=== PATIENT | female | born 1965 | race Caucasian/White ===

== ENCOUNTER → 2019-10-05 | Outpatient (CLI) | payer OTHER ==
[2014-12-01 07:41] VITALS: BP 102/81
[~2019-10-05] MED LIST: ASPI-482 PO; ATOM40CA PO; BUDE10.2 IH; CARI4.5C PO; CRESTOR5 MG PO; DESV50TA PO; DICL50TA2 PO; DIVA500T2 PO; GABA300C18 PO; ISOS30TA4 PO; LORA2TAB PO; METF10007 PO; MIDO5TAB4 PO; OMEP40CA45 PO; PANT40TA77 PO; POTA99TA PO; PRAV40TA2 PO; ROPI0.5T PO; TIOT18CA IH; TOPI100T42 PO; TRAZ-118 PO; VENL150C6 PO; VENL75TA PO
[2019-10-05 09:43] LABS: ALBUMIN 3.5 g/dL (3.4-5.0); CALCIUM 9.2 mg/dL (8.5-10.1); CREATININE 0.8 mg/dL (0.6-1.0); GFR 75.3; TOTAL BILIRUBIN 0.3 mg/dL (0.2-1.0)
[2019-10-05 09:44] LABS: POTASSIUM 4.2 mmol/L (3.5-5.1)
[2019-10-05 09:45] LABS: CHOLESTEROL/HDL RATIO 2.2
== END | disposition home or self-care (01) ==
LOC: LAB 08:44
PROVIDERS: ATTEND Nurse Practitioner
DX: E78.5 Hyperlipidemia, unspecified (principal)
CPT/HCPCS: 36415; 80053; 80061

== ENCOUNTER → 2019-10-05 | Outpatient (CLI) | payer OTHER ==
[2014-12-01 07:41] VITALS: BP 102/81
[2019-10-05 09:35] LABS: BASO % 1 % (0-3); EOS # 0.2 x10^3/uL (0.0-0.7); EOS % 2 % (0-3); HEMATOCRIT 40.8 % (36.0-47.0); HEMOGLOBIN 14.3 g/dL (12.0-15.5); LYMPH # 3.1 x10^3/uL (1.0-4.8); LYMPH % 41 % (24-48); MEAN CORPUSCULAR HEMOGLOBIN 34 pg (25-35); MEAN CORPUSCULAR HGB CONC 35 g/dL (31-37); MEAN CORPUSCULAR VOLUME 96 fL (79-100); MONO # 0.5 x10^3/uL (0.0-1.1); MONO % 7 % (0-9); NEUT # 3.8 x10^3/uL (1.8-7.7); NEUT % 50 % (31-73); PLATELET COUNT 193 x10^3/uL (140-400); RED BLOOD COUNT 4.24 x10^6/uL (3.50-5.40); RED CELL DISTRIBUTION WIDTH 13.3 % (11.5-14.5); WHITE BLOOD COUNT 7.7 x10^3/uL (4.0-11.0)
[2019-10-05 09:58] LABS: PROTHROMBIN TIME PATIENT 13.1 SEC (11.7-14.0)
--- NOTE | 2019-10-06 07:49 | RAD ---
CHEST PA LATERAL History: Tobacco use. Presurgical evaluation. Right knee surgery to be performed. Comparison: None. Findings: Frontal and lateral views of the chest were obtained. The cardiomediastinal silhouette is normal. Pulmonary vasculature is normal. The lungs are clear. No pleural effusion or pneumothorax is seen. There is no acute bone abnormality. Upper abdominal surgical clips are present. IMPRESSION: No acute cardiopulmonary process. Electronically signed by: Juan Rodrigez MD (10/06/2019 7:46 AM) [facility]
== END | disposition home or self-care (01) ==
LOC: SURGPAT 13:13
PROVIDERS: ATTEND Orthopaedic Surgery
DX: Z01.818 Encounter for other preprocedural examination (principal); M17.11 Unilateral primary osteoarthritis, right knee; Z72.0 Tobacco use
CPT/HCPCS: 36415; 71046; 82040; 82306; 83036; 85025; 85610; 85651; 85730; 87641

== ENCOUNTER 2019-10-27 05:40 | Inpatient (IN) | payer OTHER ==
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
[~2019-10-27] VITALS: Ht 165.1 cm; Wt 93.9 kg
[2019-10-27] VITALS (10 sets, daily range): BP systolic 97–119; BP diastolic 54–71
[2019-10-27] MEDS ORDERED: CELECOXIB 100 MG CAPSULE. PO ONE (06:00)
[2019-10-27] MEDS ORDERED: MORPHINE SULFATE 5 MG, KETOROLAC 30MG VIAL 30 MG, ROPIVacaine 0.5% PF 60 ML, EPINEPHrin... INT ART ONE ×5 (06:00)
[2019-10-27] MEDS ORDERED: TRANEXAMIC ACID 1,000 MG in IV NS 50ML -- 1ST BAG INJ ONE (06:00)
[2019-10-27] MEDS ORDERED: ACETAMINOPHEN 500 MG TABLET PO PRN (06:00)
[2019-10-27] MEDS ORDERED: VANCOMYCIN 1 GM VIAL. ONE ×2 (06:55→06:56)
[2019-10-27] MEDS ORDERED: TOBRAMYCIN POWDER 1.2 GM VIAL. ONE (06:56)
[2019-10-27] MEDS ORDERED: IV RINGERS,LACTATED 1000ML 1,000 ML IV SCH (07:00)
[2019-10-27] MEDS ORDERED: fentaNYL PF VIAL 100 MCG/2 ML VIAL IV PRN ×3 (07:00→10:15)
[2019-10-27] MEDS ORDERED: ONDANSETRON PF 4 MG/2 ML VIAL. IV PRN (07:00)
[2019-10-27] MEDS ORDERED: HYDROmorphone 2 MG/ML VIAL IV PRN (07:00)
[2019-10-27] MEDS ORDERED: LIDOCAINE 1% PF 2 ML VIAL. ID PRN (07:00)
[2019-10-27] MEDS ORDERED: PROCHLORPERAZINE 10 MG/2 ML VIAL. IV PRN (07:00)
[2019-10-27] MEDS ORDERED: LIDOCAINE 2% PF 5 ML VIAL. ONE (07:09)
[2019-10-27] MEDS ORDERED: DEXAMETHASONE SOD PHOS 4 MG/ML VIAL ONE (07:09)
[2019-10-27] MEDS ORDERED: ONDANSETRON PF 4 MG/2 ML VIAL. ONE (07:09)
[2019-10-27] MEDS ORDERED: FAMOTIDINE 20 MG/2 ML VIAL ONE (07:09)
[2019-10-27] MEDS ORDERED: PROPOFOL 20 ML IV ONE (07:09)
[2019-10-27] MEDS ORDERED: MIDAZOLAM HCL/PF 2 MG/2 ML VIAL. ONE (07:10)
[2019-10-27] MEDS ORDERED: ROCURONIUM 50 MG/5 ML VIAL. ONE (07:10)
[2019-10-27] MEDS ORDERED: fentaNYL PF VIAL 100 MCG/2 ML VIAL ONE (07:10)
[2019-10-27] MEDS ORDERED: ePHEDrine PF IN SALINE 50 MG/10 ML SYRINGE. IV ONE (07:42)
[2019-10-27] MEDS ORDERED: TRANEXAMIC ACID 1,000 MG in IV NS 50ML -- 2ND BAG INJ ONE (08:00)
[2019-10-27] MEDS ORDERED: ceFAZolin 2GM PREMIX 2 GM/50 ML BAG IV ONE (09:00)
[2019-10-27] MEDS ORDERED: GLYCOPYRROLATE 1 MG/5 ML VIAL. ONE (09:11)
[2019-10-27] MEDS ORDERED: NEOSTIGMINE METHYLSULFATE 5 MG/5 ML SYRINGE. ONE (09:11)
[2019-10-27] MEDS ORDERED: SEVOFLURANE > 120 MINUTES. IH ONE (09:11)
--- NOTE | 2019-10-27 10:12 | PDOC4 ---
Operative Note Operative Note Date of Procedure: October 27, 2019 Pre-Op Diagnosis: Unilateral primary osteoarthritis, right knee. M17.11 Post-Op Diagnosis: same Procedure: right total knee arthroplasty with patella resurfacing, robotic assisted, CPT 03603 Surgeon: Zafar Corona MD Personal Banker: MARISELA Ortiz Anesthesia: General EBL: 100 mL Specimens Obtained: right knee bone and soft tissue Complications: none Drains: Hemovac plus pain catheter Tourniquet time: 80 Minutes Tourniquet Pressure: 300 mm Hg Indications for Procedure: Knee arthritis pain, affecting quality of life, unrelieved by nonoperative management Findings: Severe osteoarthritis with bone on bone contact medially with full thickness cartilage loss in the patellofemoral and lateral compartments Implants: Becerril & Nephew Journey II Total Knee System, Size 3 right bicruciate stabilized Journey II BCS Oxinium femoral component, size 3 right Journey nonporous tibial baseplate, size 3-4 13 mm right Journey II BCS XLPE articular insert, 32 mm oval Alexandra II resurfacing patellar component Procedure in Detail: The patient was identified in the preoperative holding area, and the correct right lower extremity was marked by me. The patient was taken to the operating room where the patient was anesthetized by the Department of Anesthesia. Preoperative antibiotics were given intravenously. Tranexamic acid 1 g was given intravenously for intraoperative hemostasis. A "time-out" procedure was perfo rmed. The patient was positioned supine on the operative table with a tourniquet on the upper right thigh. A right hip bump and heel bump were attached to the operating table for later intraoperative positioning. The right lower limb was thoroughly scrubbed, then sterile Chloraprep solution was applied, and the limb was draped in sterile fashion. The operating team wore exhaust ventilated hoods with Digium Personal Protection Toga Zippered Peel-Away protection system. An impervious stockinet and an adhesive drape were used such that the skin was entirely covered. The limb was exsanguinated with an Esmarch bandage, and the tourniquet was inflated. A midline skin incision was made with a scalpel using the patella and tibial tubercle as landmarks. Electrocautery was used for hemostasis. My virtual customer assistant used rake retractors and a laparotomy sponge. A medial parapatellar arthrotomy incision was used with extension into the distal quadriceps tendon. The patella was retracted laterally and Hohmann retractors were now used by my virtual customer assistant. Excess synovium, the menisci, and the cruciate ligaments were resected sharply. A periarticular multimodal ropivacaine anesthetic injection was used in the suprapatellar pouch and distal quadriceps muscle. The patella was everted and exposed. The patella thickness was measured with a caliper, and then cut freehand with a saw, using caliper measurements to assess the resection. The lateral retinaculum was partially released from the lateral patella using electrocautery. Rongeurs were used to make sure there were no remaining exposed patellar osteophytes medially or laterally. The patella was sized, and then drilled for an oval three-peg patella component. The tibial tracker array for the NAVIO system was applied to the tibial crest four finger breadths below the tibial tubercle, using percutaneous incisions and bicortical pins. The femoral tracker array was applied outside of the original incision using two separate stab incisions using bicortical pins. Checkpoint verification pins were applied to the femur and tibia. Using the point probe, the medial and lateral malleoli were localized and the locations were stored. The center of the tibia was noted at the anterior cruciate ligament insertion and stored. The center of the femur was marked at the intersection of Whitesidess line with the transepicondylar axis. The hip center calculation was performed with range of motion of the hip. The femur neutral position was identified, and simulated weightbearing was performed with axial compression on the foot. Range of motion without stress was performed and the data collected. Range of motion with valgus stress, and range of motion with varus stress data collection was also performed. Rotational references include the Whitesidess line, and the trans-epicondylar axis. The femoral articular surface was now mapped in 3 dimensions using the point probe and digital data collected. The tibial condyle articular surfaces and cortical edges were mapped in 3 dimensions using the point probe including the medial and lateral tibial plateau. Implant planning was now performed on-screen with manipulation of the implant sizes, cut thicknesses and gaps, component rotation, component flexion/extension and component varus/valgus until satisfactory ligament balance, alignment and stability of the knee was expected throughout the range of motion. My virtual customer assistant held Hohmann retractors and an [employer] retractor to protect the medial and lateral collateral ligaments, the patellar tendon, the skin and the other soft tissues. The point probe was used to confirm the location of the checkpoint verification pins. The distal femoral surface was now prepared using the Anspach jeff with footpedal, and the NAVIO handpiece for bone removal to the previously planned distal femoral resection. The crosshairs at the pin locations were marked by using a mallet and the point probe for definitive location. A 5-in-1 Journey II cutting guide was then applied and the position was checked with the virtual jocelyn wing from the NAVIO to ensure proper placement as the pins were applied. The posterior, anterior, and all chamfer cuts were made wi th the oscillating saw. Excess bone was removed with an osteotome and rongeurs. The tibial cutting guide was applied, positioned using the NAVIO virtual jocelyn wing, and secured to the upper tibia using three pins at the previously planned location. The virtual jocelyn wing was used to confirm the resection depth, slope and coronal alignment. The upper tibia was cut made with an oscillating saw. My virtual customer assistant held Hohmann retractors and a posterior cruciate ligament retractor to protect the medial and lateral collateral ligaments, the patellar tendon, the skin, the peroneal nerve and the other soft tissues. The upper tibia was sized with a trial baseplate. The posterior compartment was cleared of osteophytes and loose bodies. The periarticular anesthetic injection was used in the posterior compartment. The box cut for a posterior stabilized component was made. A preliminary reduction was performed with a trial femur, trial tibial baseplate and trial polyethylene. The NAVIO system was used to confirm range of motion, and postoperative stressed gap assessment. A medial release was required, using a 10 blade scalpel, and a Pinzon elevator to elevate the medial structures from the upper medial tibia. The stability was assessed using different thicknesses of tibial articular surface to find satisfactory stability and good range of motion. The rotation of the tibial component was marked on the upper tibia. Final trial reduction was now performed verifying patella tracking and tibiofemoral stability and alignment. The bone pins and tracker arrays were removed, and the checkpoint verification pins were removed. The tibia preparation was completed with a drill, saw, and fin punch at the previously noted rotation. The final implants were verified and opened. Outer gl oves were changed by the operating team. Betadine lavage was used. The bone cuts were irrigated with saline using the [employer] InterPulse device and then dried with suction and laparotomy sponges. Two packages of Becerril + Nephew Rally HV bone cement were mixed in powdered form with Vancomycin 1gm and Tobramycin 1.2 gm, and then vacuum-mixed with the monomer, and placed into a cement gun. The cut surfaces of the bone were thoroughly dried with suction and with laparotomy sponges for cement interdigitation. The final components were cemented into place. The knee was kept at full extension while the cement hardened, and excess cement was removed. A Betadine lavage was used throughout the surgical exposure, and allowed to sit in contact with the exposed joint surfaces for three minutes while the cement hardened. Tranexamic acid 1 g was redosed intravenously for additional intraoperative hemostasis. The tourniquet was released, and electrocautery was used for hemostasis. A final periarticular anesthetic injection was used for pain relief. The bone pin sites on the tibial crest were closed with #3-0 Nylon sutures. A final check of [id number] and stability was made, and the polyethylene implant final size was chosen. The polyethylene implant was secured to the tibial baseplate, and the knee was reduced a final time and range of motion and stability was confirmed. Thorough irrigation was used. A pain catheter, and a 15 Fr Hemovac were inserted. Topical Vancomycin 1 gm was used during the closure. The arthrotomy was closed with interrupted [id number] #1 PDS suture. The arthrotomy incision was then run with #1 STRATAFIX Symmetric PDS Plus Knotless suture. The subcutaneous tissues were approximated initially with 2-0 PDS inverted interrupted sutures by my virtual customer assistant. Next the subcuticular layer was approximated in a running fashion with #3-0 STRATAFIX suture by my virtual customer assistant. The skin incision was then covered and reinforced by my virtual customer assistant with Acticoat, followed by a STALIN single use negative pressure wound therapy dressing Soft roll and an Umair wrap were applied. Needle and sponge counts were correct. There were no apparent complications. The patient returned to the recovery room in stable condition. ZAFAR CORONA MD Oct 27, 2019 10:12
[2019-10-27] MEDS ORDERED: IV NORMAL SALINE 1000ML BAG 1,000 ML IV SCH (10:14)
[2019-10-27] MEDS ORDERED: MORPHINE SULFATE 2 MG/ML VIAL. IV PRN (10:15)
[2019-10-27] MEDS ORDERED: MORPHINE SULFATE 4 MG/ML VIAL. IV PRN (10:15)
[2019-10-27] MEDS ORDERED: DEXTROSE 50% 25 GM / 50ML DISP.SYRIN. IV PRN (10:15)
[2019-10-27] MEDS ORDERED: 0.9 % SODIUM CHLORIDE 10 ML DISP.SYRIN. IV PRN (10:15)
[2019-10-27] MEDS ORDERED: CALCIUM CARBONATE 500 MG TAB.CHEW PO PRN (10:15)
[2019-10-27] MEDS ORDERED: PROCHLORPERAZINE 5 MG TABLET. PO PRN (10:15)
[2019-10-27] MEDS ORDERED: ZOLPIDEM 5 MG TABLET. PO PRN (10:15)
[2019-10-27] MEDS ORDERED: METOCLOPRAMIDE HCL 10 MG/2 ML VIAL. IV PRN (10:15)
[2019-10-27] MEDS ORDERED: diphenhydrAMINE 50 MG/ML VIAL IV PRN (10:15)
[2019-10-27] MEDS: fentaNYL PF VIAL 100 MCG/2 ML VIAL IV PRN ×2 (10:21→10:31)
[2019-10-27] MEDS: MORPHINE SULFATE 2 MG/ML VIAL. IV PRN ×4 (10:37→11:21)
[2019-10-27] MEDS ORDERED: oxyCODONE/APAP 10/325 1 TAB TABLET PO PRN (11:15)
[2019-10-27] MEDS ORDERED: INSULIN LISPRO 100 UNIT/ML 3ML VIAL for OP,RR ONLY. SQ PRN (11:15)
[2019-10-27] MEDS: INSULIN LISPRO 300 UNITS/3 ML VIAL. SQ SCH ×2 (11:20→17:17)
--- NOTE | 2019-10-27 11:22 | RAD ---
AP and lateral right knee radiographs 10/27/2019 CLINICAL HISTORY: Post right knee arthroplasty. Portable AP and lateral digital radiographs of the right knee were obtained. The patient is post right TKA. A surgical drain is noted in place. No fracture or dislocation is seen. IMPRESSION: Post right TKA. No acute osseous abnormality is seen. Electronically signed by: Rene Forrest MD (10/27/2019 11:19 AM) [facility]
--- NOTE | 2019-10-27 11:27 | NUR ---
Arrived to unit by bed from PACU. Awake and oriented x's 4. No c/o at this time. VS stable. IVF's intact and infusing. Right knee elevated on pillow with ice pack. Dressing d/i with with IAC and Hemovac drain. Able to move feet/toes easily, warm to touch and pedal pulses + bilaterally. DENA on right foot and SCD on left leg. Oriented to room and controls. Side rails up x's 2 with call light in reach. Spouse at bedside. Cont. monitor.
[2019-10-27] MEDS: ONDANSETRON PF 4 MG/2 ML VIAL. IV SCH ×2 (12:00→17:57)
[2019-10-27] MEDS: ONDANSETRON ODT 4 MG TAB.RAPDIS. PO SCH ×2 (12:00→17:57)
[2019-10-27] MEDS: NICOTINE 21MG PATCH. TD SCH (12:31)
[2019-10-27] MEDS: oxyCODONE/APAP 10/325 1 TAB TABLET PO PRN ×2 (12:37→23:20)
[2019-10-27] MEDS: metFORMIN 500 MG TABLET PO SCH (16:59)
[2019-10-27] MEDS: KETOROLAC 30MG VIAL 30 MG, BUPIVACAINE MPF 0.25% 20 ML, EPINEPHrine 0.5 MG in TOTAL VOL... INT ART SCH (17:59)
[2019-10-27] MEDS: CARIPRAZINE HYDROCHLORIDE 4.5 MG PO SCH (21:03)
[2019-10-27] MEDS: ASPIRIN ENTERIC COATED 325 MG TABLET.DR. PO SCH (21:04)
[2019-10-27] MEDS: GABAPENTIN 300 MG CAPSULE. PO SCH (21:04)
[2019-10-27] MEDS: ATORVASTATIN CALCIUM 40 MG TABLET. PO SCH (21:04)
[2019-10-27] MEDS: DIVALPROEX DELAYED RELEASE 500 MG TABLET.DR. PO SCH (21:04)
[2019-10-28 03:12] VITALS: BP 125/76
[2019-10-28 05:37] LABS: HEMATOCRIT 29.9 % (36.0-47.0); HEMOGLOBIN 10.6 g/dL (12.0-15.5); RED BLOOD COUNT 3.11 x10^6/uL (3.50-5.40); RED CELL DISTRIBUTION WIDTH 13.3 % (11.5-14.5); WHITE BLOOD COUNT 7.6 x10^3/uL (4.0-11.0)
[2019-10-28] MEDS: KETOROLAC 30MG VIAL 30 MG, BUPIVACAINE MPF 0.25% 20 ML, EPINEPHrine 0.5 MG in TOTAL VOL... INT ART SCH (05:38)
[2019-10-28] MEDS: ONDANSETRON PF 4 MG/2 ML VIAL. IV SCH ×2 (06:00)
[2019-10-28] MEDS: ONDANSETRON ODT 4 MG TAB.RAPDIS. PO SCH ×2 (06:00)
[2019-10-28] MEDS ORDERED: MAGNESIUM HYDROXIDE 2,400 MG/30 ML ORAL.SUSP. PO PRN (06:00)
[2019-10-28 06:30] VITALS: BP 116/70
[2019-10-28] MEDS: PANTOPRAZOLE 40 MG TABLET.DR. PO SCH (06:42)
[2019-10-28] MEDS: INSULIN LISPRO 300 UNITS/3 ML VIAL. SQ SCH ×3 (07:03→16:21)
--- NOTE | 2019-10-28 07:40 | PDOC ---
ORTHO PROGRESS NOTES Subjective Patient getting up to restroom and states pain at 5 out of 10 while up walking. Post-op Day: 1 Procedure R TKA with patella resurfacing Vitals Vital Signs Date Time Temp Pulse Resp B/P (MAP) Pulse Ox O2 Delivery O2 Flow Rate FiO2 10/28/19 06:30 98.2 77 20 116/70 (85) 89 Room Air 98.2 10/27/19 12:37 2.0 Labs Laboratory Tests Test 10/27/19 11:09 10/27/19 11:45 10/27/19 16:31 10/28/19 04:30 Glucose (Fingerstick) 191 mg/dL (70-99) 184 mg/dL (70-99) 209 mg/dL (70-99) White Blood Count 7.6 x10^3/uL (4.0-11.0) Red Blood Count 3.11 x10^6/uL (3.50-5.40) Hemoglobin 10.6 g/dL (12.0-15.5) Hematocrit 29.9 % (36.0-47.0) Mean Corpuscular Volume 96 fL (79-100) Mean Corpuscular Hemoglobin 34 pg (25-35) Mean Corpuscular Hemoglobin Concent 35 g/dL (31-37) Red Cell Distribution Width 13.3 % (11.5-14.5) Platelet Count 135 x10^3/uL (140-400) Test 10/28/19 06:44 Glucose (Fingerstick) 111 mg/dL (70-99) Laboratory Tests Test 10/27/19 11:09 10/27/19 11:45 10/27/19 16:31 10/28/19 04:30 Glucose (Fingerstick) 191 mg/dL (70-99) 184 mg/dL (70-99) 209 mg/dL (70-99) White Blood Count 7.6 x10^3/uL (4.0-11.0) Red Blood Count 3.11 x10^6/uL (3.50-5.40) Hemoglobin 10.6 g/dL (12.0-15.5) Hematocrit 29.9 % (36.0-47.0) Mean Corpuscular Volume 96 fL (79-100) Mean Corpuscular Hemoglobin 34 pg (25-35) Mean Corpuscular Hemoglobin Concent 35 g/dL (31-37) Red Cell Distribution Width 13.3 % (11.5-14.5) Platelet Count 135 x10^3/uL (140-400) Test 10/28/19 06:44 Glucose (Fingerstick) 111 mg/dL (70-99) Notes awake and alert Assessment and Plan POD # 1 S/P R TKA with patella resurfacing motor and sensation intact dressing dry and intact drain in place PT today encourage IS YUMIKO SNOWDEN APRN Oct 28, 2019 07:40
[2019-10-28] MEDS: SENNOSIDES/DOCUSATE 8.6/50MG TABLET. PO SCH (08:02)
[2019-10-28] MEDS: MULTIVITAMIN with MINERAL TABLET. PO SCH (08:03)
[2019-10-28] MEDS: CELECOXIB 100 MG CAPSULE. PO SCH (08:03)
[2019-10-28] MEDS: oxyCODONE/APAP 10/325 1 TAB TABLET PO PRN ×4 (08:03→20:37)
[2019-10-28] MEDS: metFORMIN 500 MG TABLET PO SCH ×2 (08:03→16:21)
[2019-10-28] MEDS: ASPIRIN ENTERIC COATED 325 MG TABLET.DR. PO SCH ×2 (08:03→20:37)
[2019-10-28] MEDS: MIDODRINE 5 MG TABLET PO SCH (08:04)
[2019-10-28] MEDS: GABAPENTIN 300 MG CAPSULE. PO SCH ×2 (08:04→20:37)
[2019-10-28] MEDS: DESVENLAFAXINE 50 MG PO SCH (08:04)
[2019-10-28] MEDS: NICOTINE 21MG PATCH. TD SCH (08:05)
[2019-10-28] MEDS ORDERED: ONDANSETRON PF 4 MG/2 ML VIAL. IV PRN (12:00)
[2019-10-28] MEDS ORDERED: ONDANSETRON ODT 4 MG TAB.RAPDIS. PO PRN (12:00)
[2019-10-28] MEDS ORDERED: BISACODYL 10 MG SUPP.RECT. PR PRN (16:00)
--- NOTE | 2019-10-28 16:40 | NUR ---
Patients IAC and hemovac were both discontinued after her last PT today around 1520. Foam dressings were applied over both sites and no complications were noted at this time. STALIN dressing intact and working properly with no drainage noted. Austen SPRINGER hose on to help with DVT prevention. Will continue to monitor.
--- NOTE | 2019-10-28 17:16 | PDOC ---
PROGRESS NOTES Subjective Subjective Quite a bit of pain. Not able to get out of bed without assistance yet. Objective Vital Signs Vital Signs Date Time Temp Pulse Resp B/P (MAP) Pulse Ox O2 Delivery O2 Flow Rate FiO2 10/28/19 16:21 Room Air 10/28/19 08:04 77 116/70 10/28/19 06:30 98.2 20 89 98.2 10/27/19 12:37 2.0 Physical Exam STALIN intact and dry. Pain catheter and Hemovac have been removed. Calf soft and NT. Good AROM of foot and toes. Intact sensation distally. No sign of compartment syndrome or DVT. No blisters. Some ecchymosis, no blisters. Labs Laboratory Tests Test 10/27/19 11:09 10/27/19 11:45 10/27/19 16:31 10/28/19 04:30 Glucose (Fingerstick) 191 mg/dL (70-99) 184 mg/dL (70-99) 209 mg/dL (70-99) White Blood Count 7.6 x10^3/uL (4.0-11.0) Red Blood Count 3.11 x10^6/uL (3.50-5.40) Hemoglobin 10.6 g/dL (12.0-15.5) Hematocrit 29.9 % (36.0-47.0) Mean Corpuscular Volume 96 fL (79-100) Mean Corpuscular Hemoglobin 34 pg (25-35) Mean Corpuscular Hemoglobin Concent 35 g/dL (31-37) Red Cell Distribution Width 13.3 % (11.5-14.5) Platelet Count 135 x10^3/uL (140-400) Test 10/28/19 06:44 10/28/19 11:44 Glucose (Fingerstick) 111 mg/dL (70-99) 90 mg/dL (70-99) Laboratory Tests Test 10/28/19 04:30 10/28/19 06:44 10/28/19 11:44 White Blood Count 7.6 x10^3/uL (4.0-11.0) Red Blood Count 3.11 x10^6/uL (3.50-5.40) Hemoglobin 10.6 g/dL (12.0-15.5) Hematocrit 29.9 % (36.0-47.0) Mean Corpuscular Volume 96 fL (79-100) Mean Corpuscular Hemoglobin 34 pg (25-35) Mean Corpuscular Hemoglobin Concent 35 g/dL (31-37) Red Cell Distribution Width 13.3 % (11.5-14.5) Platelet Count 135 x10^3/uL (140-400) Glucose (Fingerstick) 111 mg/dL (70-99) 90 mg/dL (70-99) Imaging Report reviewed, images independently reviewed. Satisfactory TKA without apparent complications. Assessment Assessment POD# 1 after TKA Plan Plan of Care Continue PT. Not yet able to get out of bed without assistance. Need to watch incision for blisters or further ecchymosis. ZAFAR CHAVEZ MD Oct 28, 2019 17:16
[2019-10-28 17:49] VITALS: BP 102/60
--- NOTE | 2019-10-28 18:06 | PATHOLOGY ---
[facility] Accession Number: [id number] . 01 Material submitted: . knee - RIGHT KNEE BONE AND TISSUE. Modifiers: right . 01 Clinical history: . Right knee osteoarthritis pain . 02 Diagnosis: Segments of bone and soft tissue, robotic right total knee arthroplasty: - Degenerative arthritis. (JPM/db; 10/28/2019) LBQ 10/28/2019 1558 Local . 02 Electronically signed: . Juarez Ortiz MD, Pathologist NPI- [id number] . 01 Gross description: . The specimen is received in formalin, labeled "Maureen Adames, right knee bone and tissue" and consists of multiple segments of pink-robledo bone including the tibial plateau with yellow lobulated soft tissue measuring 13.3 x 12.0 x 2.5 cm in aggregate. There is a small segment of possible meniscus. The articular surfaces display over 50% roughening. Osteophytes are present. [employer] sections are submitted in A1-A2 with A2 following decalcification. (SDY; 10/27/2019) SYU/SYU 10/27/2019 1659 Local . 02 Pathologist provided ICD-10: M17.11 . 02 CPT . 737209, 810695 Specimen Comment: A courtesy copy of this report has been sent to [phone] Specimen Comment: Report sent to Dr. Harper Performed at: 01 [facility] [address] [facility] [address], [place] [id number] MD Carmine Mckeon MD Phone: [phone] Performed at: 02 [facility] [address] [place], [place] [id number] MD Juarez Ortiz MD Phone: [phone]
[2019-10-28] MEDS: CARIPRAZINE HYDROCHLORIDE 4.5 MG PO SCH (20:36)
[2019-10-28] MEDS: ATORVASTATIN CALCIUM 40 MG TABLET. PO SCH (20:37)
[2019-10-28] MEDS: DIVALPROEX DELAYED RELEASE 500 MG TABLET.DR. PO SCH (20:37)
--- NOTE | 2019-10-28 20:40 | NUR ---
Assisted to toilet. Ambulates well w/o difficulty. Moderate amount of new bloody drainage oozing from Hemovac site. Foam replaced w/ small pressure bandage. RACHEAL replaced w/ Medigrip tube. Middle leg is slightly edematous and bruised. No extreme warmth felt. Saline lock DC'd after painful flush. Percocet given for knee pain. Leg iced and elevated.
[2019-10-29] MEDS: oxyCODONE/APAP 10/325 1 TAB TABLET PO PRN ×5 (00:22→20:51)
[2019-10-29 04:29] LABS: HEMATOCRIT 26.7 % (36.0-47.0); HEMOGLOBIN 9.5 g/dL (12.0-15.5)
[2019-10-29 05:41] VITALS: BP 116/66
[2019-10-29] MEDS: PANTOPRAZOLE 40 MG TABLET.DR. PO SCH (06:24)
[2019-10-29] MEDS: INSULIN LISPRO 300 UNITS/3 ML VIAL. SQ SCH ×3 (07:52→16:29)
[2019-10-29] MEDS: DESVENLAFAXINE 50 MG PO SCH (07:53)
[2019-10-29] MEDS: ASPIRIN ENTERIC COATED 325 MG TABLET.DR. PO SCH ×2 (07:54→20:51)
[2019-10-29] MEDS: NICOTINE 21MG PATCH. TD SCH (07:56)
[2019-10-29] MEDS: MIDODRINE 5 MG TABLET PO SCH (07:58)
[2019-10-29] MEDS: CELECOXIB 100 MG CAPSULE. PO SCH (07:58)
[2019-10-29] MEDS: GABAPENTIN 300 MG CAPSULE. PO SCH ×2 (07:58→20:52)
[2019-10-29] MEDS: MULTIVITAMIN with MINERAL TABLET. PO SCH (07:58)
[2019-10-29] MEDS: metFORMIN 500 MG TABLET PO SCH ×2 (07:58→16:41)
[2019-10-29] MEDS: SENNOSIDES/DOCUSATE 8.6/50MG TABLET. PO SCH (07:59)
--- NOTE | 2019-10-29 10:43 | PDOC ---
ORTHO PROGRESS NOTES Subjective Patient reports pop in operative knee standing sensing her knee gave out, although nurse reports walking with her afterwards. Pain controlled. Post-op Day: 2 Procedure R TKA with patella resurfacing Vitals Vital Signs Date Time Temp Pulse Resp B/P (MAP) Pulse Ox O2 Delivery O2 Flow Rate FiO2 10/29/19 10:01 Room Air 10/29/19 07:58 79 113/70 10/29/19 05:41 97.6 20 91 97.6 Labs Laboratory Tests Test 10/27/19 11:09 10/27/19 11:45 10/27/19 16:31 10/28/19 04:30 Glucose (Fingerstick) 191 mg/dL (70-99) 184 mg/dL (70-99) 209 mg/dL (70-99) White Blood Count 7.6 x10^3/uL (4.0-11.0) Red Blood Count 3.11 x10^6/uL (3.50-5.40) Hemoglobin 10.6 g/dL (12.0-15.5) Hematocrit 29.9 % (36.0-47.0) Mean Corpuscular Volume 96 fL (79-100) Mean Corpuscular Hemoglobin 34 pg (25-35) Mean Corpuscular Hemoglobin Concent 35 g/dL (31-37) Red Cell Distribution Width 13.3 % (11.5-14.5) Platelet Count 135 x10^3/uL (140-400) Test 10/28/19 06:44 10/28/19 11:44 10/29/19 04:15 10/29/19 06:26 Glucose (Fingerstick) 111 mg/dL (70-99) 90 mg/dL (70-99) 74 mg/dL (70-99) Hemoglobin 9.5 g/dL (12.0-15.5) Hematocrit 26.7 % (36.0-47.0) Mean Corpuscular Hemoglobin Concent 36 g/dL (31-37) Laboratory Tests Test 10/28/19 11:44 10/29/19 04:15 10/29/19 06:26 Glucose (Fingerstick) 90 mg/dL (70-99) 74 mg/dL (70-99) Hemoglobin 9.5 g/dL (12.0-15.5) Hematocrit 26.7 % (36.0-47.0) Mean Corpuscular Hemoglobin Concent 36 g/dL (31-37) Notes Pt resting comfortably, sitting in chair, RIGHT knee flexed to 80 degrees. Extends to -10 deg without difficulty. No quad or patellar, localized defect or tenderness palpable. Calf soft, nontender bilaterally, neg levi's sign bilaterally. Labs WNL, VS reviewed with no concerns. Hemovac removed. Problems: (1) Aftercare following right knee joint replacement surgery (2) Primary osteoarthritis of right knee Assessment and Plan S/P R TKA with patella resurfacing motor and sensation intact dressing dry and intact drain removed. PT today encourage IS YUMIKO WALLACE Jr. PAC Oct 29, 2019 10:43
[2019-10-29 17:57] VITALS: BP 123/77
[2019-10-29] MEDS: DIVALPROEX DELAYED RELEASE 500 MG TABLET.DR. PO SCH (20:51)
[2019-10-29] MEDS: ATORVASTATIN CALCIUM 40 MG TABLET. PO SCH (20:51)
[2019-10-29] MEDS: CARIPRAZINE HYDROCHLORIDE 4.5 MG PO SCH (20:52)
[2019-10-30] MEDS: oxyCODONE/APAP 10/325 1 TAB TABLET PO PRN ×3 (04:03→13:36)
[2019-10-30 04:31] LABS: HEMOGLOBIN 10.3 g/dL (12.0-15.5)
[2019-10-30 06:00] VITALS: BP 113/60
[2019-10-30] MEDS: INSULIN LISPRO 300 UNITS/3 ML VIAL. SQ SCH ×2 (08:00→12:00)
[2019-10-30] MEDS: NICOTINE 21MG PATCH. TD SCH (08:06)
[2019-10-30] MEDS: MIDODRINE 5 MG TABLET PO SCH (08:08)
[2019-10-30] MEDS: SENNOSIDES/DOCUSATE 8.6/50MG TABLET. PO SCH (08:09)
[2019-10-30] MEDS: ASPIRIN ENTERIC COATED 325 MG TABLET.DR. PO SCH (08:09)
[2019-10-30] MEDS: MULTIVITAMIN with MINERAL TABLET. PO SCH (08:09)
[2019-10-30] MEDS: PANTOPRAZOLE 40 MG TABLET.DR. PO SCH (08:09)
[2019-10-30] MEDS: GABAPENTIN 300 MG CAPSULE. PO SCH (08:09)
[2019-10-30] MEDS: metFORMIN 500 MG TABLET PO SCH (08:09)
[2019-10-30] MEDS: CELECOXIB 100 MG CAPSULE. PO SCH (08:09)
[2019-10-30] MEDS: DESVENLAFAXINE 50 MG PO SCH (08:10)
--- NOTE | 2019-10-30 09:25 | NUR ---
Up in chair. Just had shower. Feeling good. No c/o at this time. Cont. monitor.
--- NOTE | 2019-10-30 13:02 | PDOC ---
ORTHO PROGRESS NOTES Subjective Patient reports pain controlled at 11/26 similar to yesterday in RIGHT knee Post-op Day: 3 Procedure Right TKA with patella resurfacing Vitals Vital Signs Date Time Temp Pulse Resp B/P (MAP) Pulse Ox O2 Delivery O2 Flow Rate FiO2 10/30/19 09:45 Room Air 10/30/19 08:08 88 98/65 10/30/19 06:00 98.0 91 98.0 10/30/19 05:05 18 10/30/19 04:03 2.0 Labs Laboratory Tests Test 10/29/19 04:15 10/29/19 06:26 10/29/19 11:48 10/29/19 16:24 Hemoglobin 9.5 g/dL (12.0-15.5) Hematocrit 26.7 % (36.0-47.0) Mean Corpuscular Hemoglobin Concent 36 g/dL (31-37) Glucose (Fingerstick) 74 mg/dL (70-99) 98 mg/dL (70-99) 92 mg/dL (70-99) Test 10/30/19 03:40 10/30/19 06:08 10/30/19 11:34 Hemoglobin 10.3 g/dL (12.0-15.5) Hematocrit 29.0 % (36.0-47.0) Mean Corpuscular Hemoglobin Concent 36 g/dL (31-37) Glucose (Fingerstick) 83 mg/dL (70-99) 118 mg/dL (70-99) Laboratory Tests Test 10/29/19 16:24 10/30/19 03:40 10/30/19 06:08 10/30/19 11:34 Glucose (Fingerstick) 92 mg/dL (70-99) 83 mg/dL (70-99) 118 mg/dL (70-99) Hemoglobin 10.3 g/dL (12.0-15.5) Hematocrit 29.0 % (36.0-47.0) Mean Corpuscular Hemoglobin Concent 36 g/dL (31-37) Notes Patient resting comfortably, sitting in chair, RIGHT knee flexed to 90 degrees. Extends to -10 deg without difficulty. No quad or patellar, localized defect or tenderness palpable. Calf soft, nontender bilaterally, neg levi's sign bilaterally. Labs WNL, VS reviewed with no concerns. Hemovac drain site is benign. Problems: (1) Aftercare following right knee joint replacement surgery (2) Primary osteoarthritis of right knee Assessment and Plan S/P RIGHT TKA with patella resurfacing discharge to home today. Patient to attend outpatient PT as arranged. Take outpatient meds as prescribed Schedule follow up with Dr Corona's office in 2 weeks. Monitor lower extremities for redness, swelling, warmth, calf or thigh pain or cramps and report to clinic or ER. YUMIKO WALLACE Jr. PAC Oct 30, 2019 13:02
--- NOTE | 2019-10-30 13:22 | PDOC ---
PROGRESS NOTES Subjective Subjective Planning on discharge today. Objective Vital Signs Vital Signs Date Time Temp Pulse Resp B/P (MAP) Pulse Ox O2 Delivery O2 Flow Rate FiO2 10/30/19 09:45 Room Air 10/30/19 08:08 88 98/65 10/30/19 06:00 98.0 91 98.0 10/30/19 05:05 18 10/30/19 04:03 2.0 Physical Exam STALIN is intact with spotty drainage only. Calf soft and nontender. Labs Laboratory Tests Test 10/29/19 04:15 10/29/19 06:26 10/29/19 11:48 10/29/19 16:24 Hemoglobin 9.5 g/dL (12.0-15.5) Hematocrit 26.7 % (36.0-47.0) Mean Corpuscular Hemoglobin Concent 36 g/dL (31-37) Glucose (Fingerstick) 74 mg/dL (70-99) 98 mg/dL (70-99) 92 mg/dL (70-99) Test 10/30/19 03:40 10/30/19 06:08 10/30/19 11:34 Hemoglobin 10.3 g/dL (12.0-15.5) Hematocrit 29.0 % (36.0-47.0) Mean Corpuscular Hemoglobin Concent 36 g/dL (31-37) Glucose (Fingerstick) 83 mg/dL (70-99) 118 mg/dL (70-99) Laboratory Tests Test 10/29/19 16:24 10/30/19 03:40 10/30/19 06:08 10/30/19 11:34 Glucose (Fingerstick) 92 mg/dL (70-99) 83 mg/dL (70-99) 118 mg/dL (70-99) Hemoglobin 10.3 g/dL (12.0-15.5) Hematocrit 29.0 % (36.0-47.0) Mean Corpuscular Hemoglobin Concent 36 g/dL (31-37) Assessment Assessment POD #3 TKA Plan Plan of Care Discharge today to home with home health outpatient physical therapy. Office followup in 10-14 days. Continue DVT prophylaxis. ZAFAR CHAVEZ MD Oct 30, 2019 13:22
[2019-10-30] MEDS ORDERED: ASPI325T11 PO (13:30)
--- NOTE | 2019-10-30 13:33 | PDOC3 ---
Discharge Summary Visit Information Date of Admission: Oct 27, 2019 Date of Discharge: Oct 30, 2019 Admitting Diagnosis: Osteoarhtritis knee Final Diagnosis same Brief Hospital Course Allergies Allergies Coded Allergies Type Severity Reaction Last Updated Verified quetiapine Allergy Severe "STROKE LIKE SYMPTOMS" 10/29/19 Yes oxcarbazepine Allergy Intermediate SWELLING 10/29/19 Yes Vital Signs Vital Signs Date Time Temp Pulse Resp B/P (MAP) Pulse Ox O2 Delivery O2 Flow Rate FiO2 10/30/19 09:45 Room Air 10/30/19 08:08 88 98/65 10/30/19 06:00 98.0 91 98.0 10/30/19 05:05 18 10/30/19 04:03 2.0 Lab Results Laboratory Tests Test 10/29/19 04:15 10/29/19 06:26 10/29/19 11:48 10/29/19 16:24 Hemoglobin 9.5 g/dL (12.0-15.5) Hematocrit 26.7 % (36.0-47.0) Mean Corpuscular Hemoglobin Concent 36 g/dL (31-37) Glucose (Fingerstick) 74 mg/dL (70-99) 98 mg/dL (70-99) 92 mg/dL (70-99) Test 10/30/19 03:40 10/30/19 06:08 10/30/19 11:34 Hemoglobin 10.3 g/dL (12.0-15.5) Hematocrit 29.0 % (36.0-47.0) Mean Corpuscular Hemoglobin Concent 36 g/dL (31-37) Glucose (Fingerstick) 83 mg/dL (70-99) 118 mg/dL (70-99) Laboratory Tests Test 10/29/19 16:24 10/30/19 03:40 10/30/19 06:08 10/30/19 11:34 Glucose (Fingerstick) 92 mg/dL (70-99) 83 mg/dL (70-99) 118 mg/dL (70-99) Hemoglobin 10.3 g/dL (12.0-15.5) Hematocrit 29.0 % (36.0-47.0) Mean Corpuscular Hemoglobin Concent 36 g/dL (31-37) Brief Hospital Course Ms. Cummings is a 54 old female who presented with osteoarthritis of the knee for elective total knee arthroplasty She underwent surgery the day of admission. Perioperative antibiotics and DVT prophylaxis were used. PT was consulted. Stable for discharge. Discharge Information Condition at Discharge: Stable Follow Up: Weeks Disposition/Orders: D/C to Home Scheduled Aspirin (Aspirin Ec) 325 Mg Tablet.dr, 325 MG PO BID for Prevent blood clots for 30 Days, #60 Take one tablet po twice daily Prescribed by: DONNA GUY JR on 10/30/19 1330 Cariprazine Hydrochloride (Vraylar) 4.5 Mg Capsule, 4.5 MG PO HS for BIPOLAR DEPRESSION, (Reported) Entered as Reported by: WANDA MATUTE on 10/06/19 1455 Last Taken: Unknown Dose on 10/26/19 Last Action: Converted on 10/27/19 1024 by ZAFAR CHAVEZ MD Desvenlafaxine Succinate (Pristiq Er) 50 Mg Tab.er.24h, 50 MG PO DAILY for DEPRESSION, (Reported) Entered as Reported by: WANDA MATUTE on 10/06/19 145 Last Taken: Unknown Dose on 10/26/19 Last Action: Converted on 10/27/19 1024 by ZAFAR CHAVEZ MD Divalproex Sodium (Depakote) 500 Mg Tablet.dr, 1,000 MG PO HS for BIPOLAR, (Reported) Entered as Reported by: WANDA MATUTE on 10/06/19 1456 Last Taken: Unknown Dose on 10/26/19 Last Action: Continued on 10/27/19 1024 by ZAFAR CHAVEZ MD Gabapentin (Gabapentin ) 300 Mg Capsule, 300 MG PO BID for NEUROGENIC PAIN, (Reported) 2 TABS IN AM 3 TABS @ HS Entered as Reported by: WANDA MATUTE on 10/06/19 1456 Last Taken: Unknown Dose on 10/26/19 Last Action: Continued on 10/27/19 1024 by ZAFAR CHAVEZ MD Metformin Hcl (Metformin Hcl) 1,000 Mg Tablet, 1,000 MG PO BIDWMEALS for WEIGHT LOSS , (Reported) Entered as Reported by: WANDA MATUTE on 10/06/19 1456 Last Taken: Unknown Dose on 10/26/19 Last Action: Converted on 10/27/19 1025 by ZAFAR CHAVEZ MD Midodrine Hcl (Midodrine Hcl) 5 Mg Tablet, 5 MG PO DAILY for LOW BLOOD PRESSURE , (Reported) Entered as Reported by: WANDA MATUTE on 10/06/19 1455 Last Taken: Unknown Dose on 10/26/19 Last Action: Continued on 10/27/19 1024 by ZAFAR CHAVEZ MD Omeprazole (Omeprazole) 40 Mg Capsule.dr, 40 MG PO DAILY for ACID REFLUX, (Reported) Entered as Reported by: WANDA MATUTE on 10/06/19 1456 Last Taken: Unknown Dose on 10/27/19 0500 Last Action: Converted on 10/27/19 1025 by ZAFAR CHAVEZ MD Rosuvastatin Calcium (Crestor) 5 Mg Tablet, 10 MG PO DAILY for FOR CHOLESTEROL, #30 Ref 0 (Reported) Entered as Reported by: WANDA MATUTE on 10/06/19 1455 Last Taken: Unknown Dose on 10/26/19 Last Action: Converted on 10/27/19 1025 by MD RODRIGO QURESHI ROBERT W Jr. PAC Oct 30, 2019 13:33
[2019-10-30] MEDS ORDERED: OXYC1TAB22 PO (14:01)
[2019-10-30 15:00] VITALS: BP 119/72
--- NOTE | 2019-10-30 15:45 | NUR ---
Discharge instructions given with prescription. Answered questions and concerns. Verbalized understanding. Pt discharge home accompanied by spouse.
== END 2019-10-30 15:45 | disposition home or self-care (01) | DRG 470 ==
LOC: SURG 05:40 → 4 SOUTHEST 10:59 → OBSVTOIN 10:59
PROVIDERS: ADMIT Orthopaedic Surgery; ATTEND Orthopaedic Surgery
PROC: 0QUD0JZ Supplement Right Patella with Synthetic Substitute, Open Approach (ICD-10-PCS; 2019-10-27)
PROC: 8E0Y0CZ Robotic Assisted Procedure of Lower Extremity, Open Approach (ICD-10-PCS; 2019-10-27)
PROC: 0SRC069 Replacement of Right Knee Joint with Oxidized Zirconium on Polyethylene Synthetic Substitute, Cemented, Open Approach (ICD-10-PCS; principal; 2019-10-27 07:10)
DX: M17.0 Bilateral primary osteoarthritis of knee (principal); K21.9 Gastro-esophageal reflux disease without esophagitis; F17.210 Nicotine dependence, cigarettes, uncomplicated; I10 Essential (primary) hypertension; F31.9 Bipolar disorder, unspecified; J44.9 Chronic obstructive pulmonary disease, unspecified; G25.81 Restless legs syndrome; Z88.8 Allergy status to other drugs, medicaments and biological substances; Z80.0 Family history of malignant neoplasm of digestive organs; Z83.3 Family history of diabetes mellitus; Z82.49 Family history of ischemic heart disease and other diseases of the circulatory system
CPT/HCPCS: 36415; 73560; 82962; 85014; 85018; 85027; 86850; 86900; 86901; 88304; 88311; A7015; C1713; J0171; J0696; J1100; J1815; J1885; J2001; J2250; J2270; J2405; J2704; J2710; J2795; J3010; J3260; J3370; J3490; J7030; J7120; 97116; 97150; 97530; 97535; A4461; C1769; G0378; Q0162

== ENCOUNTER → 2020-01-08 | Outpatient (CLI) | payer OTHER ==
[~2020-01-08] MED LIST changes: +ASPI325T11 PO; +OXYC1TAB22 PO
== END | disposition home or self-care (01) ==
LOC: LAB 14:41
PROVIDERS: ATTEND Internal Medicine Gastroenterology
DX: Z11.59 Encounter for screening for other viral diseases (principal); Z80.0 Family history of malignant neoplasm of digestive organs
CPT/HCPCS: C9803; U0003; 36415

== ENCOUNTER → 2020-01-13 | Day surgery (SDC) | payer OTHER ==
[~2020-01-13] MED LIST changes: +HYDROmorphone 2 MG/ML VIAL IV PRN; +IV RINGERS,LACTATED 1000ML 1,000 ML IV SCH; +LIDOCAINE 1% PF 2 ML VIAL. ID PRN; +LIDOCAINE 2% PF 5 ML VIAL. ONE; +MORPHINE SULFATE 2 MG/ML VIAL. IV PRN; +ONDANSETRON PF 4 MG/2 ML VIAL. IV PRN; +PROCHLORPERAZINE 10 MG/2 ML VIAL. IV PRN; +PROPOFOL 10 MG/ML (20ML) VIAL. IV ONE; +fentaNYL PF VIAL 100 MCG/2 ML VIAL IV PRN
[2020-01-13 08:55] VITALS: BP 122/70
--- NOTE | 2020-01-14 16:06 | PATHOLOGY ---
[facility] Accession Number: [id number] . 01 Material submitted: . PART A: esophagus - DISTAL ESOPHAGEAL BIOPSIES. Modifiers: distal PART B: rectum - RECTAL POLYP PART C: colon - SIGMOID POLYP. Modifiers: sigmoid . 01 Clinical history: . Abdominal pain, N/V . 02 Diagnosis: A. Esophageal biopsies, distal esophagus: - Reflux esophagitis. . B. Colorectal biopsies, rectal polyp: - Hyperplastic polyp. . C. Colon biopsies, sigmoid polyp: - Hyperplastic polyp. ([facility] 01/14/2020) [facility] 01/14/2020 [address] [facility] . 02 Comment: Sections of the distal esophageal biopsy reveal segments of hyperplastic squamous esophageal mucosa consistent with reflux esophagitis. There is no evidence of Smith's change, dysplasia, or malignancy. . Sections of the rectal biopsy reveal a hyperplastic polyp. There are no adenomatous changes or evidence of malignancy. . Sections of the sigmoid colon biopsy also reveal a hyperplastic polyp. There are no adenomatous changes or evidence of malignancy. ([facility] 01/14/2020) . 02 Electronically signed: . Juarez Ortiz MD, Pathologist NPI- [id number] . 01 Gross description: . A. The specimen is received in formalin, labeled "Maureen McNaab, distal esophageal biopsies". Received are five segments of pale robledo soft tissue ranging in size from 0.3 to 0.4 cm in maximum dimensions. The specimen is submitted entirely in cassette A1. . B. The specimen is received in formalin, labeled "Maureen McNaab, rectal polyp". Received are five segments of pale robledo soft tissue ranging in size from 0.2 to 0.4 cm in maximum dimensions. The specimen is submitted entirely in cassette B1. . C. The specimen is received in formalin, labeled "Maureen Santoroab, sigmoid polyp". Received are two segments of pale robledo soft tissue ranging in size from 0.3 to 0.4 cm in maximum dimensions. The specimen is submitted entirely in cassette C1. ([facility]; 01/13/2020) QAC/QAC 01/13/2020 1642 Local . 02 Pathologist provided ICD-10: K21.0, K62.1, K63.5 . 02 CPT . 150904, 033609, 104549 Specimen Comment: A courtesy copy of this report has been sent to [phone], [phone] Specimen Comment: [id number] Specimen Comment: Report sent to / DR MELENDEZ Specimen Comment: A duplicate report has been generated due to demographic updates. Performed at: 01 [facility] [address] [id number] MD Carmine Mckeon MD Phone: [phone] Performed at: 02 [facility] [address] [place], [place] [id number] MD Juarez Ortiz MD Phone: [phone]
== END | disposition home or self-care (01) ==
LOC: ENDOS 06:46
PROVIDERS: ATTEND Internal Medicine Gastroenterology
DX: Z12.11 Encounter for screening for malignant neoplasm of colon (principal); K62.1 Rectal polyp; K63.5 Polyp of colon; K21.0 Gastro-esophageal reflux disease with esophagitis; E78.5 Hyperlipidemia, unspecified; F41.9 Anxiety disorder, unspecified; M19.90 Unspecified osteoarthritis, unspecified site; J44.9 Chronic obstructive pulmonary disease, unspecified; F32.9 Major depressive disorder, single episode, unspecified; E78.00 Pure hypercholesterolemia, unspecified; G47.33 Obstructive sleep apnea (adult) (pediatric); Z80.0 Family history of malignant neoplasm of digestive organs; Z86.010 Personal history of colon polyps; Z88.8 Allergy status to other drugs, medicaments and biological substances; Z83.3 Family history of diabetes mellitus; Z83.71 Family history of colonic polyps; Z79.84 Long term (current) use of oral hypoglycemic drugs; Z79.899 Other long term (current) drug therapy; Z98.84 Bariatric surgery status; Z79.82 Long term (current) use of aspirin
CPT/HCPCS: 43239; 45380; J2704; J3490; 45384